=== PATIENT | female | born 1970 | race Caucasian/White ===

== ENCOUNTER → 2017-02-09 | Outpatient (CLI) | payer OTHER | LOC: EMI 09:58 | DX: G43.909 Migraine, unspecified, not intractable, without status migrainosus (principal); H57.10 Ocular pain, unspecified eye | CPT/HCPCS: 70553; A9577; J7050 ==

== ENCOUNTER → 2017-03-09 | Outpatient (CLI) | payer OTHER ==
[2017-03-09 13:02] LABS: HEMOGLOBIN 12.7 gm/dl (12.3-15.3); RED BLOOD COUNT 4.29 M/UL (4.00-5.10); WHITE BLOOD COUNT 5.4 K/UL (4.5-11.0)
[2017-03-09 13:18] LABS: BUN/CREATININE RATIO 18 (0-10)
== END ==
LOC: LAB 12:21
PROVIDERS: Nurse Practitioner Family
DX: Z00.00 Encounter for general adult medical examination without abnormal findings (principal); K21.9 Gastro-esophageal reflux disease without esophagitis; E78.00 Pure hypercholesterolemia, unspecified; M54.5 Low back pain; R53.82 Chronic fatigue, unspecified; E55.9 Vitamin D deficiency, unspecified; Z87.19 Personal history of other diseases of the digestive system
CPT/HCPCS: 36415; 80053; 80061; 82607; 84439; 84443; 85025

== ENCOUNTER → 2021-08-23 | Outpatient (CLI) | payer OTHER ==
[~2021-08-23] MED LIST: Voltaren Gel 1 % TOP
== END ==
LOC: KOH-I 15:11
DX: M25.561 Pain in right knee (principal)
CPT/HCPCS: 73562

== ENCOUNTER → 2022-05-03 | Outpatient (CLI) | payer OTHER | LOC: HEART 5 14:26 | DX: R55 Syncope and collapse (principal); R00.2 Palpitations ==

== ENCOUNTER → 2022-06-07 | Outpatient (CLI) | payer OTHER | LOC: EXRD 13:26 | DX: M89.8X9 Other specified disorders of bone, unspecified site (principal) | CPT/HCPCS: 73590 ==

== ENCOUNTER → 2022-06-15 | Outpatient (CLI) | payer OTHER | LOC: HEART 5 10:00 | DX: R00.2 Palpitations (principal); R06.02 Shortness of breath; I08.1 Rheumatic disorders of both mitral and tricuspid valves | CPT/HCPCS: 93306 ==